=== PATIENT | female | born 2000 | race Caucasian/White ===

== ENCOUNTER 2021-07-28 20:32 | Emergency (ER) | payer BC ==
[~2021-07-28] VITALS: Ht 160 cm; Wt 81.6 kg
[2021-07-28 20:34] VITALS: BP 122/81
--- NOTE | 2021-07-28 20:34 | NUR ---
BIBA TAKEN TO BED #12
--- NOTE | 2021-07-28 20:41 | NUR ---
21 YO F BIBA FROM HOME WITH C/C OF ANXIETY S/P SMOKING METH IN THE MORING. PT STATES SHE IS ANXIOUS AND FEELS WIERD. PT STATES SHE DOESNT REGULARLY USE AND THIS IS THE SECOND TIME THIS HAS HAPPENED. DENIES HX, RX AND ALLERGIES
[2021-07-28] MEDS ORDERED: NACL 0.9% 1,000 ML IV ONE (20:45)
[2021-07-28] MEDS ORDERED: LORazepam 2 MG/ML VIAL IVP ONE ×2 (20:45→21:55)
--- NOTE | 2021-07-28 22:00 | NUR ---
PT IS AWAKE AND ALERT. ALL NEEDS MET AT THIS TIME.
[2021-07-28 23:11] VITALS: BP 117/72
--- NOTE | 2021-07-28 23:11 | NUR ---
Patient discharged with v/s stable. Written and verbal after care instructions given and explained. Patient verbalized understanding. Ambulatory with steady gait. All questions addressed prior to discharge. Advised to follow up with PMD.
== END 2021-07-28 23:11 | disposition home or self-care (01) ==
LOC: MED 20:32
DX: F19.10 Other psychoactive substance abuse, uncomplicated (principal); F15.129 Other stimulant abuse with intoxication, unspecified; F41.9 Anxiety disorder, unspecified
CPT/HCPCS: 96361; 96374; 99283; J2060; J7030